=== PATIENT | female | born 1990 ===

== ENCOUNTER 2017-09-19 09:58 | Emergency (ER) | payer MEDICAID ==
[2017-09-19 10:16] VITALS: RESP 18
--- NOTE | 2017-09-19 11:13 | C.PDOC ---
History Of Present Illness 27 y/o female with history of Gallbladder disease presents to ED with complaints of intermittent sharp epigastric abdominal pain and back pain associated with nausea since yesterday after eating pizza. Patient did not take medication for pain and reports last bowel movement earlier today. Patient denies vomiting, diarrhea, fever, dysuria or any other complaints at this time. LMP 08/24/17 Time Seen by Provider: 09/19/17 10:25 Chief Complaint (Nursing): Abdominal Pain History Per: Patient History/Exam Limitations: no limitations Onset/Duration Of Symptoms: Days Current Symptoms Are (Timing): Still Present Location Of Pain/Discomfort: Epigastric Radiation Of Pain To:: Back Quality Of Discomfort: Sharp Associated Symptoms: Nausea Past Medical History Reviewed: Historical Data, Nursing Documentation, Vital Signs Vital Signs: Last Vital Signs Temp 98.2 F 09/19/17 13:53 Pulse 82 09/19/17 13:53 Resp 18 09/19/17 13:53 BP 118/75 09/19/17 13:53 Pulse Ox 100 09/19/17 13:53 - Medical History PMH: Gall Bladder Disease Surgical History: No Surg Hx Family History: States: No Known Family Hx - Social History Hx Tobacco Use: No Hx Alcohol Use: No Hx Substance Use: No - Immunization History Hx Tetanus Toxoid Vaccination: No Hx Influenza Vaccination: No Hx Pneumococcal Vaccination: No Review Of Systems Constitutional: Negative for: Fever, Chills Gastrointestinal: Positive for: Nausea, Abdominal Pain. Negative for: Vomiting , Diarrhea Genitourinary: Negative for: Dysuria Musculoskeletal: Positive for: Back Pain Skin: Negative for: Rash Physical Exam - Physical Exam Appears: Non-toxic, No Acute Distress Skin: Warm, Dry, No Rash Head: Atraumatic, Normacephalic Oral Mucosa: Moist Neck: Normal ROM, Supple Cardiovascular: Rhythm Regular Respiratory: Normal Breath Sounds, No Rales, No Rhonchi, No Wheezing Gastrointestinal/Abdominal: Soft, Tenderness (Midl epigastric and RUQ), No Guarding, No Rebound, Other (Negative Howard's sign) Back: No CVA Tenderness Extremity: Normal ROM, Capillary Refill (<2 seconds) Neurological/Psych: Oriented x3, Normal Speech, Normal Cognition ED Course And Treatment - Laboratory Results Result Diagrams: 09/19/17 11:21 09/19/17 11:21 O2 Sat by Pulse Oximetry: 98 (RA) Pulse Ox Interpretation: Normal Medical Decision Making Medical Decision Making: Plan: Blood work, UA , Abdomen US ordered. Zofran administered Progress: After pain medication pt feeling better Patient discharged with motrin and instructed to f.u with clinic for possible gallbladder surgery Disposition Counseled Patient/Family Regarding: Studies Performed, Diagnosis, Need For Followup, Rx Given - Disposition Referrals: Esteban Park MD [Staff Provider] - Disposition: HOME/ ROUTINE Disposition Time: 13:32 Condition: IMPROVED Additional Instructions: Please avoid fatty and fried foods. Take ibuprofen for bishop if needed. Follow up with Dr Park to discuss possible surgery for gallbladder. Return to ER for worse pain, vomiting, fever or other concerns. Prescriptions: Ibuprofen [Motrin] 600 mg PO TID #30 tab Forms: General Discharge Instructions, [facility] ([place]an), Work Excuse - Clinical Impression Clinical Impression: Cholelithiasis - PA / ORANGE PICKER / Resident Statement MD/DO has reviewed & agrees with the documentation as recorded. - Scribe Statement The provider has reviewed the documentation as recorded by the Janellibmey San All medical record entries made by the Anila were at my direction and personally dictated by me. I have reviewed the chart and agree that the record accurately reflects my personal performance of the history, physical exam, medical decision making, and the department course for this patient. I have also personally directed, reviewed, and agree with the discharge instructions and disposition.
[2017-09-19 11:28] LABS: BASO % 0.2 % (0.0-2.0); EOS # 0.1 K/uL (0.0-0.7); EOS % 1.1 % (0.0-4.0); HEMOGLOBIN 13.5 g/dL (11.0-16.0); LYMPH # 1.2 K/uL (1.0-4.3); MEAN CELL VOLUME 89.9 fL (81.0-99.0); MEAN CORPUSCULAR HEMOGLOBIN 30.7 pg (27.0-31.0); MEAN CORPUSCULAR HGB CONC 34.2 g/dL (33.0-37.0); MEAN PLATELET VOLUME 9.7 fL (7.2-11.7); MONO # 0.8 K/uL (0.0-0.8); MONO % 8.2 % (0.0-10.0); NEUT % 78.5 % (50.0-75.0); RBC 4.4 Mil/uL (3.80-5.20); RED CELL DISTRIBUTION WIDTH 12.9 % (11.5-14.5); WHITE BLOOD COUNT 10.2 K/uL (4.8-10.8)
[2017-09-19 11:33] LABS: HCG,QUALITATIVE URINE NEGATIVE (NEGATIVE)
[2017-09-19 11:34] LABS: SQUAMOUS EPITHIAL 1 /hpf (0-5); URINE BILIRUBIN NEGATIVE (NEGATIVE); URINE BLOOD NEGATIVE (NEGATIVE); URINE CLARITY Clear (Clear); URINE COLOR Yellow (YELLOW); URINE GLUCOSE (UA) NORMAL (Normal); URINE LEUKOCYTE ESTERASE NEG Leu/uL (Negative); URINE PROTEIN NEGATIVE (NEGATIVE); URINE UROBILINOGEN NORMAL mg/dL (0.2-1.0)
--- NOTE | 2017-09-19 11:35 | US ---
HISTORY: ruq pain, hx gallstones COMPARISON: None. TECHNIQUE: Sonographic evaluation of the right upper quadrant of the abdomen. FINDINGS: LIVER: Measures 16.6 cm in length. Normal echogenicity of the liver parenchyma. No mass. No intrahepatic bile duct dilatation. GALLBLADDER: Cholelithiasis. Sludge. No mural thickening. No pericholecystic fluid. Negative sonographic Howard sign. COMMON BILE DUCT: Measures 3 mm. No stones. No dilatation. PANCREAS: Unremarkable as visualized. No mass. No ductal dilatation. RIGHT KIDNEY: Measures 11.4 cm in length. Normal echogenicity. No calculus, mass, or hydronephrosis. AORTA: No aneurysmal dilatation. IVC: Unremarkable. OTHER FINDINGS: None . IMPRESSION: Cholelithiasis without sonographic evidence of cholecystitis. No evidence of biliary obstruction. Otherwise unremarkable examination.
[2017-09-19 11:48] LABS: ALB/GLOB RATIO 1.2 (1.0-2.1); ALBUMIN 4.3 g/dL (3.5-5.0); ALT/SGPT 18 U/L (9-52); AST/SGOT 25 U/L (14-36); BLOOD UREA NITROGEN 14 mg/dL (7-17); CALCIUM 8.6 mg/dl (8.6-10.4); GFR AFRICAN-AMERICAN > 60; GFR NON-AFRICAN AMERICAN > 60; LIPASE 41 U/L (23-300)
[2017-09-19 13:54] VITALS: BP 118/75; PULSE 82; TEMP 98.2
[2017-09-20 13:32] VITALS: O2SAT 98
== END 2017-09-19 14:04 | disposition home or self-care (01) ==
LOC: C.ER 09:58
DX: K80.20 Calculus of gallbladder without cholecystitis without obstruction (principal)
CPT/HCPCS: 76705; 80053; 81001; 83690; 84703; 85025; 96374; 96375; 99285; J1885; J2405

== ENCOUNTER 2018-01-25 20:14 | Emergency (ER) | payer MEDICAID, OTHER ==
[2018-01-25 20:45] VITALS: BMI 34.7
[2018-01-25 21:19] LABS: SQUAMOUS EPITHIAL 2 /hpf (0-5); URINE BILIRUBIN NEGATIVE (NEGATIVE); URINE BLOOD NEGATIVE (NEGATIVE); URINE CLARITY Clear (Clear); URINE COLOR Yellow (YELLOW); URINE GLUCOSE (UA) NORMAL (Normal); URINE LEUKOCYTE ESTERASE NEG Leu/uL (Negative); URINE PROTEIN NEGATIVE (NEGATIVE); URINE UROBILINOGEN NORMAL mg/dL (0.2-1.0)
--- NOTE | 2018-01-25 21:52 | OBHP ---
Datetime: 01/25/2018 21:48 IP Adm Impression: , intrauterine ; No Active Labor IP Admit Plan: Discharge home Admit Comment, IP Provider: @ 21 WEEKS PRESENTS WITH LOWER ABDOMINAL CRAMPING. PMHX:NONE PSHX: NONE SOCIAL HX: NONE MEDS: NONE ALL: NKDA A/P 28 PRESENTS TODAY FOR LOWER PELVIC PAIN/CRAMPING 1) UA NEGATIVE 2) CAT 1 TRACING 3) PT HAS OB APPT TOMORROW. LAST US WAS NORMAL. Pelvic Type - PN: Adequate Extremities - PN: Normal Abdomen - PN: Normal Back - PN: Normal Breast - PN: Normal Lungs - PN: Normal Heart - PN: Normal Thyroid - PN: Normal Neurologic - PN: Normal HEENT - PN: Normal General - PN: Normal FHR - Baseline A Provider: 140 Membranes, Provider: Intact Contraction Comments Provider: NONE IP Hx Assessment: The History has been Reviewed and is Current EGA AdmitDate IP: 21.5 Vital Signs Provider: Reviewed IP Chief Complaint: Maternal discomfort; Other NICHD Variability Prov Fetus A: Moderate 6-25bpm NICHD Accel Fetus A IP Provider: 15X15 Dilatation, Provider: 0 Effacement, Provider: 0 Station, Provider: -3 Genitourinary Exam: Normal DTRs - PN: Normal Dr Signature: Silvano GIRARD
[2018-01-26 02:05] VITALS: BP 94/65; PULSE 75; RESP 20; TEMP 98.4
== END 2018-01-25 21:40 | disposition home or self-care (01) ==
LOC: C.EROB 20:14
DX: O26.892 Other specified pregnancy related conditions, second trimester (principal); R10.2 Pelvic and perineal pain; Z3A.21 21 weeks gestation of pregnancy